=== PATIENT | male | born 1960 | race Caucasian/White ===

== ENCOUNTER 2024-01-24 20:35 | Inpatient (IN) | payer MEDICARE, MEDICAID ==
[~2024-01-24] VITALS: Ht 182.9 cm; Wt 123.1 kg
[~2024-01-24 20:35] MED LIST: AMLO10TA55 PO; BENZ-247 PO; GABA-1181 PO; HYDR10TA31 PO; HYDR50CA6 PO; QUET200T PO; RISP2TAB45 PO; VALS40TA11 PO
[2024-01-26 11:05] VITALS: BP 132/69; PULSE 86; RESP 18; TEMP 98.2
[2024-01-26] MEDS: SODIUM CHLORIDE 1 GM TABLET PO SCH (16:46)
[2024-01-26] MEDS ORDERED: MAGNESIUM HYDROXIDE SUSPENSION 30 ML UDCUP PO PRN (18:30)
[2024-01-26] MEDS ORDERED: PETROLATUM,WHITE 28 GM JELLY TP PRN (18:30)
[2024-01-26] MEDS ORDERED: ACETAMINOPHEN 325 MG TABLET PO PRN (18:30)
[2024-01-26] MEDS ORDERED: LOPERAMIDE HCL 2 MG CAPSULE PO PRN (18:30)
[2024-01-26] MEDS ORDERED: CloNIDine HCL 0.1 MG TABLET PO PRN (18:30)
[2024-01-26] MEDS ORDERED: ONDANSETRON HCL 4 MG TABLET PO PRN (18:30)
[2024-01-26] MEDS ORDERED: GuaiFENesin/D-METHORPHAN [SUGAR-FREE] 200-20MG/10 ML SYRUP UDCUP PO PRN (18:30)
[2024-01-26] MEDS ORDERED: ALBUTEROL SULFATE HFA 90 MCG/PUFF 8 GM INHALER IH PRN (18:30)
[2024-01-26] MEDS ORDERED: DOCUSATE SODIUM 100 MG CAPSULE PO PRN (18:30)
[2024-01-26 20:44] VITALS: PULSE 74; RESP 18; TEMP 97.4
[2024-01-26] MEDS: RisperiDONE 2 MG TABLET PO SCH (21:45)
[2024-01-26] MEDS: BENZTROPINE MESYLATE 1 MG TABLET PO SCH (21:45)
[2024-01-26] MEDS: ZOLPIDEM TARTRATE 10 MG TABLET PO PRN (21:57)
[2024-01-26] MEDS: LORazepam 2 MG TABLET PO PRN (21:57)
[2024-01-27] MEDS: CHLORHEXIDINE GLUCONATE 2% TOWELETTE [2'S/6'S] TP SCH (06:39)
[2024-01-27] MEDS: OLOPATADINE HCL 0.1% 5 ML OPHTHALMIC SOLUTION OU SCH (09:00)
[2024-01-27] MEDS: NICOTINE 21 MG/24 HOUR PATCH TD SCH (09:00)
[2024-01-27] MEDS: VALSARTAN 40 MG TABLET PO SCH (09:00)
[2024-01-27] MEDS: AmLODIPine BESYLATE 10 MG TABLET PO SCH (09:00)
[2024-01-27 14:31] VITALS: RESP 18
[2024-01-27 20:54] VITALS: RESP 18
[2024-01-27] MEDS: HALOPERIDOL 5 MG TABLET PO PRN (21:46)
[2024-01-28 11:21] VITALS: RESP 18; TEMP 98
[2024-01-28 21:03] VITALS: RESP 18; TEMP 97.4
[2024-01-29 10:42] VITALS: RESP 18
[2024-01-29 21:09] VITALS: RESP 18
[2024-01-30 08:39] VITALS: PULSE 88; RESP 18; TEMP 97.6
[2024-01-30 20:16] VITALS: BP 142/97; PULSE 78; RESP 18; TEMP 97.4
[2024-01-31 12:40] VITALS: RESP 18
[2024-01-31 22:13] VITALS: RESP 18
[2024-02-01 08:35] VITALS: RESP 17; TEMP 98
[2024-02-01] MEDS ORDERED: ChlorproMAZINE HCL 50 MG/2 ML AMP IM PRN (11:30)
[2024-02-01] MEDS: RisperiDONE 2 MG TABLET PO ONE (11:39)
[2024-02-01 20:49] VITALS: RESP 18
[2024-02-02 08:08] VITALS: PULSE 73; RESP 18; TEMP 97.6
[2024-02-02 08:52] VITALS: BP 141/65; PULSE 75; RESP 18
[2024-02-02 20:41] VITALS: RESP 17
[2024-02-03 09:00] VITALS: RESP 18; TEMP 98
[2024-02-03 20:25] VITALS: RESP 18
[2024-02-04 07:37] LABS: BASOPHILS % (AUTO) 0.6 % (0.0-2.0); EOSINOPHILS % (AUTO) 0.7 % (1.0-6.0); HEMATOCRIT 46.5 % (41-53); HEMOGLOBIN 15.8 g/dL (13.5-17.5); LYMPHOCYTES # (AUTO) 2.2 K/uL (1.0-4.8); LYMPHOCYTES % (AUTO) 18.3 % (22.0-44.0); MEAN CORPUSCULAR HGB CONC 33.9 G/dL (31.0-37.0); MEAN CORPUSCULAR VOLUME 95 fL (80-100); MONOCYTES # (AUTO) 1.1 K/uL (0.1-1.0); MONOCYTES % (AUTO) 9.1 % (2.0-9.0); NEUTROPHILS # (AUTO) 8.7 K/uL (1.8-7.7); NEUTROPHILS % (AUTO) 71.3 % (40.0-70.0); PLATELET COUNT (AUTO) 253 K/uL (150-450); RED BLOOD CELL COUNT(AUTO) 4.92 MIL/uL (4.50-5.90); RED CELL DISTRIBUTION WIDTH 13.8 % (11.5-14.5); WHITE BLOOD COUNT (AUTO) 12.2 K/uL (4.5-11.0)
[2024-02-04 07:48] LABS: ALANINE AMINOTRANSFERASE 39 U/L (12-78); ALBUMIN 2.9 g/dL (3.4-5.0); ALKALINE PHOSPHATASE 71 U/L (46-116); ANION GAP 7 mmol/L (8-16); ASPARTATE AMINOTRANSFERASE 20 U/L (15-37); BILIRUBIN,TOTAL 0.5 mg/dL (0.1-1.0); CALCIUM, TOTAL 8.7 mg/dL (8.8-10.5); CARBON DIOXIDE 28 mmol/L (22-29); CHLORIDE 100 mmol/L (98-107); CREATININE 0.71 mg/dL (0.60-1.30); GLOMERULAR FILTR. RATE CALC > 60 mL/min (>60); GLUCOSE,RANDOM 140 mg/dL (70-110); POTASSIUM 4.4 mmol/L (3.5-5.1); SODIUM SERUM 135 mmol/L (136-145); TOTAL PROTEIN, SERUM 6.9 g/dL (6.4-8.2); UREA NITROGEN, BLOOD 11 mg/dL (7-18)
[2024-02-04 08:54] VITALS: BP 127/71; PULSE 93; RESP 18; TEMP 97.8
[2024-02-04 23:21] VITALS: BP 118/82; PULSE 79; RESP 18; TEMP 97.2
[2024-02-05 08:58] VITALS: BP 127/88; PULSE 81; RESP 17; TEMP 97.8
[2024-02-05 20:46] VITALS: BP 140/62; PULSE 83; RESP 18; TEMP 97.8
[2024-02-06 10:22] VITALS: BP 144/69; PULSE 82; RESP 18; TEMP 97.1
[2024-02-06 21:08] VITALS: BP 102/56; PULSE 87; RESP 18; TEMP 98.5
[2024-02-07 08:17] VITALS: BP 133/72; PULSE 97; RESP 18; TEMP 97.1
[2024-02-07 20:19] VITALS: BP 161/81; PULSE 77; RESP 18; TEMP 97.9
[2024-02-08 08:37] VITALS: BP 137/77; PULSE 85; RESP 18; TEMP 97.8
[2024-02-08 20:37] VITALS: BP 159/85; PULSE 80; RESP 18; TEMP 97.8
[2024-02-09 01:43] LABS: APPEARANCE,URINE CLEAR (CLEAR); BILIRUBIN,URINE NEGATIVE (NEGATIVE); COLOR,URINE COLORLESS (YELLOW); GLUCOSE, URINE (UA) NEGATIVE (NEGATIVE); KETONES,URINE NEGATIVE (NEGATIVE); LEUKOCYTE ESTERASE ,URINE MODERATE (NEGATIVE); NITRATE,URINE NEGATIVE (NEGATIVE); OCCULT BLOOD,URINE TRACE (NEGATIVE); PROTEIN,URINE NEGATIVE (NEGATIVE); SPECIFIC GRAVITIY, URINE 1.009 (1.003-1.030); UROBILINOGEN,URINE <=1.0 mg/dL (<=1.0)
[2024-02-09 01:52] LABS: BACTERIA,URINE Many /HPF (None Seen); RBC,URINE 0-2 /HPF (0-2); SQUAMOUS EPITHELIAL CELL,UR None Seen /LPF (None Seen)
[2024-02-09 09:22] VITALS: BP 143/70; PULSE 81; RESP 18; TEMP 98
[2024-02-09 12:36] VITALS: BP 138/69; PULSE 79; RESP 18; TEMP 98
[2024-02-09] MEDS: IBUPROFEN 400 MG TABLET PO PRN (12:36)
[2024-02-09 13:36] VITALS: BP 139/76; PULSE 81; RESP 18; TEMP 98
[2024-02-09 20:49] VITALS: BP 147/68; PULSE 73; RESP 18; TEMP 98.5
[2024-02-10 09:41] VITALS: BP 148/71; PULSE 75; RESP 18; TEMP 97
[2024-02-10 20:50] VITALS: BP 159/84; PULSE 75; RESP 18; TEMP 98.5
[2024-02-11 07:49] LABS: BASOPHILS % (AUTO) 0.7 % (0.0-2.0); HEMATOCRIT 46.8 % (41-53); LYMPHOCYTES # (AUTO) 2.1 K/uL (1.0-4.8); LYMPHOCYTES % (AUTO) 20.8 % (22.0-44.0); MEAN CORPUSCULAR HEMOGLOBIN 31.8 pg (26.0-34.0); MEAN CORPUSCULAR HGB CONC 34.1 G/dL (31.0-37.0); MEAN CORPUSCULAR VOLUME 93 fL (80-100); MONOCYTES # (AUTO) 0.9 K/uL (0.1-1.0); NEUTROPHILS # (AUTO) 6.8 K/uL (1.8-7.7); NEUTROPHILS % (AUTO) 68.5 % (40.0-70.0); PLATELET COUNT (AUTO) 266 K/uL (150-450); RED BLOOD CELL COUNT(AUTO) 5.02 MIL/uL (4.50-5.90); RED CELL DISTRIBUTION WIDTH 13.3 % (11.5-14.5)
[2024-02-11 08:27] VITALS: BP 139/74; PULSE 93; RESP 18; TEMP 97.6
[2024-02-11 20:34] VITALS: BP 138/69; PULSE 75; RESP 18; TEMP 97.1
[2024-02-12 08:14] LABS: ALANINE AMINOTRANSFERASE 34 U/L (12-78); ALBUMIN 2.7 g/dL (3.4-5.0); ALKALINE PHOSPHATASE 74 U/L (46-116); ANION GAP 6 mmol/L (8-16); ASPARTATE AMINOTRANSFERASE 15 U/L (15-37); BILIRUBIN,TOTAL 0.4 mg/dL (0.1-1.0); CALCIUM, TOTAL 8.6 mg/dL (8.8-10.5); CARBON DIOXIDE 30 mmol/L (22-29); CHLORIDE 99 mmol/L (98-107); CREATININE 0.67 mg/dL (0.60-1.30); GLOMERULAR FILTR. RATE CALC > 60 mL/min (>60); GLUCOSE,RANDOM 205 mg/dL (70-110); POTASSIUM 4.4 mmol/L (3.5-5.1); SODIUM SERUM 135 mmol/L (136-145); TOTAL PROTEIN, SERUM 6.7 g/dL (6.4-8.2); UREA NITROGEN, BLOOD 10 mg/dL (7-18)
[2024-02-12] MEDS: CEPHALEXIN MONOHYDRATE 250 MG CAPSULE PO SCH (09:00)
[2024-02-12] MEDS: LACTULOSE 20 GM/30 ML SOLUTION UDCUP PO SCH (09:05)
[2024-02-12 09:20] VITALS: BP 141/73; PULSE 79; RESP 18; TEMP 97
[2024-02-12 21:24] VITALS: BP 157/75; PULSE 71; RESP 18; TEMP 97.9
[2024-02-13] MEDS: LEVOFLOXACIN 500 MG TABLET PO SCH (09:09)
[2024-02-13 09:54] VITALS: PULSE 83; RESP 18; TEMP 97
[2024-02-13 10:23] VITALS: BP 120/64; PULSE 81
[2024-02-13 21:49] VITALS: BP 154/89; PULSE 78; RESP 18; TEMP 97.7
[2024-02-14 08:20] VITALS: BP 132/76; PULSE 94; RESP 18; TEMP 97.5
[2024-02-14 21:44] VITALS: BP 159/75; PULSE 76; RESP 18; TEMP 96.5
[2024-02-15 09:04] VITALS: BP 136/64; PULSE 68; RESP 18; TEMP 97.6
[2024-02-15 20:15] VITALS: BP 138/78; PULSE 78; RESP 18; TEMP 98.1
[2024-02-16 09:42] VITALS: BP 146/83; PULSE 99; RESP 18
[2024-02-16] MEDS ORDERED: RisperiDONE ER SUSPENSION 125 MG/0.35 ML PRE-FILLED SYRINGE SQ SCH (13:00)
[2024-02-16 21:38] VITALS: RESP 18
[2024-02-17 08:26] VITALS: BP 141/70; PULSE 82; RESP 18; TEMP 98
[2024-02-17 21:03] VITALS: BP 152/89; PULSE 90; RESP 18; TEMP 98
[2024-02-18 08:49] VITALS: BP 132/69; PULSE 90; RESP 18; TEMP 97.6
[2024-02-18 21:11] VITALS: BP 160/74; PULSE 82; RESP 18; TEMP 98
[2024-02-19 10:44] VITALS: BP 118/70; PULSE 78; RESP 16; TEMP 97.8
[2024-02-19 21:03] VITALS: BP 155/68; PULSE 69; RESP 18; TEMP 98.9
[2024-02-20 09:17] VITALS: BP 124/74; PULSE 86; RESP 17; TEMP 97.9
[2024-02-20 20:51] VITALS: BP 119/70; PULSE 75; RESP 18; TEMP 97.7
[2024-02-21 10:25] VITALS: BP 122/68; PULSE 81; RESP 18; TEMP 96.8
[2024-02-21 20:26] VITALS: BP 129/75; PULSE 73; RESP 18; TEMP 98.1
[2024-02-22 09:04] VITALS: BP 126/66; PULSE 83; RESP 18; TEMP 97.6
[2024-02-22] MEDS: DIVALPROEX SODIUM 500 MG DR TABLET PO SCH (11:46)
[2024-02-22 21:06] VITALS: BP 121/64; PULSE 75; RESP 18; TEMP 97.4
[2024-02-23 10:06] VITALS: BP 97/56; PULSE 77; RESP 19; TEMP 97.8
[2024-02-23 22:47] VITALS: BP 134/72; PULSE 86; RESP 18; TEMP 97.1
[2024-02-24 08:01] LABS: ALANINE AMINOTRANSFERASE 27 U/L (12-78); ALBUMIN 2.6 g/dL (3.4-5.0); ALKALINE PHOSPHATASE 73 U/L (46-116); ASPARTATE AMINOTRANSFERASE 13 U/L (15-37); BILIRUBIN,TOTAL 0.3 mg/dL (0.1-1.0); CALCIUM, TOTAL 8.5 mg/dL (8.8-10.5); CARBON DIOXIDE 29 mmol/L (22-29); CREATININE 0.62 mg/dL (0.60-1.30); GLOMERULAR FILTR. RATE CALC > 60 mL/min (>60); GLUCOSE,RANDOM 125 mg/dL (70-110); TOTAL PROTEIN, SERUM 6.7 g/dL (6.4-8.2); UREA NITROGEN, BLOOD 10 mg/dL (7-18)
[2024-02-24 08:29] LABS: ANION GAP 6 mmol/L (8-16); CHLORIDE 102 mmol/L (98-107); POTASSIUM 4.4 mmol/L (3.5-5.1); SODIUM SERUM 137 mmol/L (136-145)
[2024-02-24 09:25] VITALS: BP 107/74; PULSE 70; RESP 18; TEMP 97.5
[2024-02-24 20:13] VITALS: BP 123/57; PULSE 72; RESP 18; TEMP 97.5
[2024-02-25 10:01] VITALS: BP 114/55; PULSE 73; RESP 19; TEMP 97.6
[2024-02-25 12:40] VITALS: BP 148/65
[2024-02-25] MEDS: RisperiDONE 2 MG TABLET PO SCH (20:21)
[2024-02-25 21:15] VITALS: BP 146/76; PULSE 84; RESP 19; TEMP 97.6
[2024-02-26 09:28] VITALS: BP 133/61; PULSE 67; RESP 18; TEMP 97.8
[2024-02-26 20:48] VITALS: BP 154/96; PULSE 76; RESP 18; TEMP 96.3
[2024-02-27 09:26] VITALS: BP 125/75; PULSE 90; RESP 18; TEMP 97.8
[2024-02-27 20:07] VITALS: BP 131/77; PULSE 94; RESP 18; TEMP 97.6
[2024-02-28 08:58] VITALS: BP 140/82; PULSE 93; RESP 18; TEMP 97
[2024-02-28 20:18] VITALS: BP 139/81; PULSE 94; RESP 18; TEMP 97.4
[2024-02-29 08:22] VITALS: BP 126/64; PULSE 91; RESP 18; TEMP 98
[2024-02-29 20:45] VITALS: BP 139/71; PULSE 81; RESP 17; TEMP 97.6
[2024-03-01 08:26] VITALS: BP 125/65; PULSE 96; RESP 18; TEMP 97.9
[2024-03-01] MEDS: MAG HYDROX/ALUMINUM HYD/SIMETH ES 30 ML SUSPENSION UDCUP PO PRN (08:55)
[2024-03-01 20:30] VITALS: BP 148/94; PULSE 17; PULSE 89; RESP 17; TEMP 97.2
[2024-03-02 08:37] LABS: ANION GAP 5 mmol/L (8-16); CALCIUM, TOTAL 8.8 mg/dL (8.8-10.5); CARBON DIOXIDE 31 mmol/L (22-29); CHLORIDE 98 mmol/L (98-107); CREATININE 0.81 mg/dL (0.60-1.30); GLOMERULAR FILTR. RATE CALC > 60 mL/min (>60); GLUCOSE,RANDOM 191 mg/dL (70-110); POTASSIUM 4.5 mmol/L (3.5-5.1); SODIUM SERUM 134 mmol/L (136-145); UREA NITROGEN, BLOOD 12 mg/dL (7-18)
[2024-03-02 09:22] VITALS: BP 131/78; PULSE 17; RESP 17; TEMP 97.9
[2024-03-02 09:29] VITALS: BP 131/78; PULSE 85; RESP 17; TEMP 97.9
[2024-03-02 20:34] VITALS: BP 143/67; PULSE 80; RESP 18; TEMP 97.2
[2024-03-03 09:36] VITALS: BP 116/75; PULSE 86; RESP 18; TEMP 98
[2024-03-03 20:07] VITALS: BP 120/67; PULSE 80; RESP 18; TEMP 97.5
[2024-03-04 08:07] VITALS: BP 131/83; PULSE 82; RESP 17; TEMP 97.6
[2024-03-04 20:58] VITALS: BP 132/81; PULSE 94; RESP 18; TEMP 98.1
[2024-03-05 08:00] VITALS: BP 124/66; PULSE 89; RESP 18; TEMP 97.7
[2024-03-05 20:46] VITALS: BP 133/71; PULSE 83; RESP 18; TEMP 98
[2024-03-06 08:53] VITALS: BP 133/73; PULSE 96; RESP 17; TEMP 96.8
[2024-03-06 21:35] VITALS: BP 147/94; PULSE 80; RESP 18; TEMP 97.5
[2024-03-07 10:17] VITALS: BP 131/97; PULSE 74; RESP 18; TEMP 97.8
[2024-03-07 20:08] VITALS: BP 128/82; PULSE 82; RESP 18; TEMP 98
[2024-03-08 08:57] LABS: ANION GAP 3 mmol/L (8-16); CALCIUM, TOTAL 8.6 mg/dL (8.8-10.5); CARBON DIOXIDE 34 mmol/L (22-29); CHLORIDE 102 mmol/L (98-107); CREATININE 0.65 mg/dL (0.60-1.30); GLOMERULAR FILTR. RATE CALC > 60 mL/min (>60); GLUCOSE,RANDOM 125 mg/dL (70-110); POTASSIUM 4.2 mmol/L (3.5-5.1); SODIUM SERUM 139 mmol/L (136-145); UREA NITROGEN, BLOOD 10 mg/dL (7-18)
[2024-03-08 14:23] VITALS: BP 141/88; PULSE 79; RESP 18; TEMP 97.8
[2024-03-08 21:03] VITALS: BP 152/69; PULSE 69; RESP 19; TEMP 97
[2024-03-09 08:47] VITALS: BP 158/74; PULSE 80; RESP 18
[2024-03-09] MEDS ORDERED: DIVA-112 PO ×2 (13:21→20:39)
[2024-03-09] MEDS ORDERED: AMLO-258 PO (20:39)
[2024-03-09] MEDS ORDERED: VALS40TA4 PO (20:39)
[2024-03-09] MEDS ORDERED: LACT10SO10 PO (20:39)
[2024-03-09] MEDS ORDERED: BENZ-247 PO (20:39)
[2024-03-09] MEDS ORDERED: RISP3TAB77 PO (20:39)
== END 2024-03-09 16:00 | disposition home or self-care (01) | DRG 885 ==
LOC: 3EX 01-26 11:00 → UNDODISIN 02-19 10:15
PROVIDERS: ADMIT Psychiatry & Neurology Psychiatry; ATTEND Psychiatry & Neurology Psychiatry
PROC: GZHZZZZ Group Psychotherapy (ICD-10-PCS; principal; 2024-01-26)
PROC: GZ51ZZZ Individual Psychotherapy, Behavioral (ICD-10-PCS; 2024-01-26)
DX: F20.0 Paranoid schizophrenia (principal); E87.1 Hypo-osmolality and hyponatremia; J44.9 Chronic obstructive pulmonary disease, unspecified; I10 Essential (primary) hypertension; R73.03 Prediabetes; Z79.899 Other long term (current) drug therapy
CPT/HCPCS: 70450; 80048; 80053; 80164; 81001; 82140; 83036; 84443; 85025; 87081; 87086; 87186; G0378; J3535; Q9967

== ENCOUNTER 2024-06-07 15:38 | Inpatient (IN) | payer MEDICARE, MEDICAID ==
[~2024-06-07] VITALS: Ht 182.9 cm; Wt 115.8 kg
[~2024-06-07 15:38] MED LIST changes: +ALBU18HF12 IH; +ATOR20TA65 PO; +BUME1TAB6 PO; +DIVA-112 PO; -GABA-1181 PO; -HYDR10TA31 PO; -HYDR50CA6 PO; +NITR0.4T50 SL; -QUET200T PO; -RISP2TAB45 PO; +RISP3TAB77 PO; +SENN-297 PO
[2024-06-07] MEDS ORDERED: MAGNESIUM HYDROXIDE SUSPENSION 30 ML UDCUP PO PRN (18:15)
[2024-06-07] MEDS ORDERED: LOPERAMIDE HCL 2 MG CAPSULE PO PRN ×2 (18:15→21:15)
[2024-06-07] MEDS ORDERED: LORazepam 2 MG TABLET PO PRN (18:15)
[2024-06-07] MEDS ORDERED: HALOPERIDOL 5 MG TABLET PO PRN (18:15)
[2024-06-07 18:52] VITALS: BP 145/58; PULSE 73; RESP 17; TEMP 97.6; O2SAT 97
[2024-06-07] MEDS ORDERED: PETROLATUM,WHITE 28 GM JELLY TP PRN (21:15)
[2024-06-07] MEDS ORDERED: IBUPROFEN 400 MG TABLET PO PRN (21:15)
[2024-06-07] MEDS ORDERED: CloNIDine HCL 0.1 MG TABLET PO PRN (21:15)
[2024-06-07] MEDS ORDERED: ALBUTEROL SULFATE HFA 90 MCG/PUFF 8 GM INHALER IH PRN (21:15)
[2024-06-07] MEDS ORDERED: NICOTINE 14 MG/24 HOUR PATCH TD PRN (21:15)
[2024-06-07] MEDS ORDERED: GuaiFENesin/D-METHORPHAN [SUGAR-FREE] 200-20MG/10 ML SYRUP UDCUP PO PRN (21:15)
[2024-06-07] MEDS ORDERED: ONDANSETRON 4 MG TABLET PO PRN (21:15)
[2024-06-07] MEDS ORDERED: DOCUSATE SODIUM 100 MG CAPSULE PO PRN (21:15)
[2024-06-07] MEDS ORDERED: DEXTROSE 50%-WATER 25 GM/50 ML SYRINGE IVP PRN (21:15)
[2024-06-07 21:16] VITALS: BP 114/55; PULSE 67; RESP 19; TEMP 97.5; O2SAT 96
[2024-06-07] MEDS: RisperiDONE 3 MG TABLET PO SCH (21:19)
[2024-06-07] MEDS: ACETAMINOPHEN 325 MG TABLET PO PRN (21:19)
[2024-06-07] MEDS: BENZTROPINE MESYLATE 1 MG TABLET PO SCH (21:19)
[2024-06-07 21:40] LABS: GLUCOMETER DEV NAME(LOC) 3E.I 2; GLUCOSE,POINT OF CARE 161 MG/DL (70-110)
[2024-06-07 22:25] VITALS: BP 132/70; PULSE 76; RESP 18; TEMP 97.1; O2SAT 96
[2024-06-07 23:30] VITALS: BP 144/72; PULSE 72; RESP 18; TEMP 97.3; O2SAT 97
[2024-06-07] MEDS: HydrALAZINE HCL 25 MG TABLET PO SCH (23:32)
[2024-06-07] MEDS: PEG 400/HYPROMELLOSE/GLYCERIN 15 ML OPHTHALMIC SOLUTION OU PRN (23:32)
[2024-06-07] MEDS: MAG HYDROX/ALUMINUM HYD/SIMETH ES 30 ML SUSPENSION UDCUP PO PRN (23:34)
[2024-06-07] MEDS: INSULIN LISPRO 100 UNITS/ML SQ PRN (23:35)
[2024-06-08] MEDS ORDERED: INFLUENZA VIRUS VACCINE TVS (6MO+) 2024-25/PF 45 MCG/0.5 ML SYRINGE IM. ONE (02:15)
[2024-06-08] MEDS ORDERED: PNEUMOCOCCAL VACCINE POLYVALENT 0.5 ML SYRINGE [PPSV23] IM. ONE (03:15)
[2024-06-08 06:01] LABS: GLUCOMETER DEV NAME(LOC) 3E.I 2; GLUCOSE,POINT OF CARE 94 MG/DL (70-110)
[2024-06-08] MEDS: ATORVASTATIN CALCIUM 20 MG TABLET PO SCH (08:04)
[2024-06-08] MEDS: PredniSONE 20 MG TABLET PO SCH (08:04)
[2024-06-08 11:27] VITALS: BP 132/62; PULSE 78; RESP 18; TEMP 98.2; O2SAT 97
[2024-06-08 12:46] LABS: GLUCOMETER DEV NAME(LOC) 3EX.2; GLUCOSE,POINT OF CARE 223 MG/DL (70-110)
[2024-06-08 12:54] VITALS: BP 135/66; PULSE 88; RESP 17; TEMP 98.3; O2SAT 96
[2024-06-08 17:10] LABS: GLUCOMETER DEV NAME(LOC) 3EX.2; GLUCOSE,POINT OF CARE 207 MG/DL (70-110)
[2024-06-08 20:35] LABS: GLUCOMETER DEV NAME(LOC) 3E.I 2; GLUCOSE,POINT OF CARE 115 MG/DL (70-110)
[2024-06-08 20:40] VITALS: BP 148/94; PULSE 69; RESP 18; TEMP 98.2; O2SAT 97
[2024-06-08] MEDS: MONTELUKAST SODIUM 10 MG TABLET PO SCH (20:42)
[2024-06-08] MEDS: ZOLPIDEM TARTRATE 10 MG TABLET PO PRN (22:52)
[2024-06-08 23:23] VITALS: BP 158/63; PULSE 64; RESP 17; TEMP 98.1; O2SAT 94
[2024-06-09 06:01] LABS: GLUCOMETER DEV NAME(LOC) 3E.I 2; GLUCOSE,POINT OF CARE 106 MG/DL (70-110)
[2024-06-09 09:45] VITALS: BP 139/56; PULSE 73; RESP 19; TEMP 98.2; O2SAT 95
[2024-06-09 11:30] LABS: GLUCOMETER DEV NAME(LOC) 3E.I 2; GLUCOSE,POINT OF CARE 138 MG/DL (70-110)
[2024-06-09 13:10] VITALS: BP 134/84; PULSE 78; RESP 17; TEMP 98.3; O2SAT 98
[2024-06-09 17:21] LABS: GLUCOMETER DEV NAME(LOC) 3E.I 2; GLUCOSE,POINT OF CARE 198 MG/DL (70-110)
[2024-06-09 20:11] LABS: GLUCOMETER DEV NAME(LOC) 3E.I 2; GLUCOSE,POINT OF CARE 125 MG/DL (70-110)
[2024-06-09 21:26] VITALS: BP 160/81; PULSE 60; RESP 18; TEMP 98.2; O2SAT 99
[2024-06-10 06:25] LABS: GLUCOMETER DEV NAME(LOC) 3E.I 2; GLUCOSE,POINT OF CARE 100 MG/DL (70-110)
[2024-06-10 08:18] VITALS: BP 147/68; PULSE 71; RESP 20; TEMP 97.9; O2SAT 95
[2024-06-10] MEDS: FLUTICASONE/VILANTEROL 200-25 MCG/INH INHALER [14] IH SCH (09:00)
[2024-06-10 11:24] VITALS: BP 138/84; PULSE 75; RESP 18; TEMP 98.2; O2SAT 96
[2024-06-10 12:00] LABS: GLUCOMETER DEV NAME(LOC) 3E.I 2; GLUCOSE,POINT OF CARE 246 MG/DL (70-110)
[2024-06-10 16:06] LABS: APPEARANCE,URINE CLEAR (CLEAR); BILIRUBIN,URINE NEGATIVE (NEGATIVE); COLOR,URINE COLORLESS (YELLOW); GLUCOSE, URINE (UA) NEGATIVE (NEGATIVE); KETONES,URINE NEGATIVE (NEGATIVE); LEUKOCYTE ESTERASE ,URINE NEGATIVE (NEGATIVE); NITRATE,URINE NEGATIVE (NEGATIVE); OCCULT BLOOD,URINE NEGATIVE (NEGATIVE); PH,URINE 7.5 (5.0-8.0); PH,URINE DRUG SCREEN 7.5 (5.0-8.0); PROTEIN,URINE NEGATIVE (NEGATIVE); SPECIFIC GRAVITIY, URINE 1.004 (1.003-1.030); UROBILINOGEN,URINE <=1.0 mg/dL (<=1.0)
[2024-06-10 16:14] LABS: ALCOHOL, URINE DRUG SCREEN NEGATIVE (NEGATIVE); AMPHET/METH SCREEN,URINE NEGATIVE (NEGATIVE); BARBITURATE SCREEN, URINE NEGATIVE (NEGATIVE); BENZODIAZEPINES SCREEN,URINE NEGATIVE (NEGATIVE); CANNABINOID SCREEN,URINE NEGATIVE (NEGATIVE); COCAINE SCREEN,URINE NEGATIVE (NEGATIVE); METHADONE SCREEN, URINE NEGATIVE (NEGATIVE); OPIATE SCREEN,URINE NEGATIVE (NEGATIVE); PHENCYCLIDINE SCREEN,URINE NEGATIVE (NEGATIVE)
[2024-06-10 16:21] LABS: BACTERIA,URINE Rare /HPF (None Seen); RBC,URINE 0-2 /HPF (0-2); SQUAMOUS EPITHELIAL CELL,UR Rare /LPF (None Seen); WBC,URINE 0-2 /HPF (0-5)
[2024-06-10 17:46] LABS: GLUCOMETER DEV NAME(LOC) 3E.I 2; GLUCOSE,POINT OF CARE 158 MG/DL (70-110)
[2024-06-10 18:37] VITALS: BP 141/87; PULSE 74; RESP 19; TEMP 98; O2SAT 97
[2024-06-10 20:27] VITALS: BP 159/75; PULSE 67; RESP 19; TEMP 98; O2SAT 98
[2024-06-10 20:51] LABS: GLUCOMETER DEV NAME(LOC) 3E.I 2; GLUCOSE,POINT OF CARE 162 MG/DL (70-110)
[2024-06-11] VITALS (7 sets, daily range): BP systolic 120–182; BP diastolic 67–74; PULSE 65–80; RESP 17–19; TEMP 97.4–98.2; O2SAT 0–98
[2024-06-11 05:45] LABS: GLUCOMETER DEV NAME(LOC) 3E.I 2; GLUCOSE,POINT OF CARE 104 MG/DL (70-110)
[2024-06-11 19:06] LABS: GLUCOMETER DEV NAME(LOC) 3E.I 2; GLUCOSE,POINT OF CARE 226 MG/DL (70-110)
[2024-06-11 20:06] LABS: GLUCOMETER DEV NAME(LOC) 3E.I 2; GLUCOSE,POINT OF CARE 141 MG/DL (70-110)
[2024-06-12 05:40] LABS: GLUCOMETER DEV NAME(LOC) 3E.I 2; GLUCOSE,POINT OF CARE 99 MG/DL (70-110)
[2024-06-12 08:25] VITALS: BP 147/66; PULSE 76; RESP 18; TEMP 97.9; O2SAT 98
[2024-06-12 10:37] VITALS: BP 139/58; PULSE 73; RESP 18; TEMP 97.6; O2SAT 97
[2024-06-12 11:36] LABS: GLUCOMETER DEV NAME(LOC) 3EX.2; GLUCOSE,POINT OF CARE 194 MG/DL (70-110)
[2024-06-12 15:25] VITALS: BP_SYST 146; BP_SYST 152; BP_DIAS 74; BP_DIAS 76; PULSE 70; PULSE 76; RESP 17; RESP 18; TEMP 97.8; TEMP 98; O2SAT 95; O2SAT 97
[2024-06-12 17:31] LABS: GLUCOMETER DEV NAME(LOC) 3EX.2; GLUCOSE,POINT OF CARE 140 MG/DL (70-110)
[2024-06-12 20:50] LABS: GLUCOMETER DEV NAME(LOC) 3E.I 2; GLUCOSE,POINT OF CARE 155 MG/DL (70-110)
[2024-06-12 22:35] VITALS: BP 160/66; PULSE 72; RESP 19; TEMP 98.1; O2SAT 98
[2024-06-13 06:11] LABS: GLUCOMETER DEV NAME(LOC) 3E.I 2; GLUCOSE,POINT OF CARE 94 MG/DL (70-110)
[2024-06-13 07:17] LABS: BASOPHILS % (AUTO) 0.3 % (0.0-2.0); EOSINOPHILS % (AUTO) 0.3 % (1.0-6.0); HEMATOCRIT 43.9 % (41-53); HEMOGLOBIN 14.5 g/dL (13.5-17.5); LYMPHOCYTES # (AUTO) 2.7 K/uL (1.0-4.8); LYMPHOCYTES % (AUTO) 25.8 % (22.0-44.0); MEAN CORPUSCULAR HEMOGLOBIN 32.3 pg (26.0-34.0); MEAN CORPUSCULAR VOLUME 98 fL (80-100); MONOCYTES % (AUTO) 9.8 % (2.0-9.0); NEUTROPHILS # (AUTO) 6.8 K/uL (1.8-7.7); NEUTROPHILS % (AUTO) 63.8 % (40.0-70.0); PLATELET COUNT (AUTO) 187 K/uL (150-450); RED BLOOD CELL COUNT(AUTO) 4.48 MIL/uL (4.50-5.90); RED CELL DISTRIBUTION WIDTH 15.5 % (11.5-14.5); WHITE BLOOD COUNT (AUTO) 10.6 K/uL (4.5-11.0)
[2024-06-13 07:35] LABS: CHOL/HDL RATIO 1.6 (4.2-7.3); HEMOGLOBIN A1C 5.7 % (3.8-5.6)
[2024-06-13 07:42] LABS: ALANINE AMINOTRANSFERASE 52 U/L (12-78); ALBUMIN 2.8 g/dL (3.4-5.0); ALKALINE PHOSPHATASE 42 U/L (46-116); ANION GAP 4 mmol/L (8-16); ASPARTATE AMINOTRANSFERASE 16 U/L (15-37); BILIRUBIN,TOTAL 0.5 mg/dL (0.1-1.0); CALCIUM, TOTAL 8.2 mg/dL (8.8-10.5); CARBON DIOXIDE 32 mmol/L (22-29); CHLORIDE 99 mmol/L (98-107); GLOMERULAR FILTR. RATE CALC > 60 mL/min (>60); GLUCOSE,RANDOM 96 mg/dL (70-110); POTASSIUM 4.3 mmol/L (3.5-5.1); SODIUM SERUM 135 mmol/L (136-145); THYROID STIMULATING HORMONE 0.94 uIU/mL (0.36-3.74); TOTAL PROTEIN, SERUM 5.4 g/dL (6.4-8.2); UREA NITROGEN, BLOOD 10 mg/dL (7-18)
[2024-06-13 09:31] VITALS: BP 158/71; PULSE 75; RESP 19; TEMP 97.2; O2SAT 98
[2024-06-13 11:36] LABS: GLUCOMETER DEV NAME(LOC) 3EX.2; GLUCOSE,POINT OF CARE 177 MG/DL (70-110)
[2024-06-13 17:06] LABS: GLUCOMETER DEV NAME(LOC) 3EX.2; GLUCOSE,POINT OF CARE 180 MG/DL (70-110)
[2024-06-13] MEDS ORDERED: BENZ-247 PO (17:28)
[2024-06-13] MEDS ORDERED: MONT-35 PO (17:28)
[2024-06-13] MEDS ORDERED: RISP3TAB77 PO (17:28)
[2024-06-13] MEDS ORDERED: ATOR20TA65 PO (17:28)
[2024-06-13 20:35] VITALS: BP 154/87; PULSE 62; RESP 18; TEMP 97.6; O2SAT 98
[2024-06-13 21:16] LABS: GLUCOMETER DEV NAME(LOC) 3E.I 2; GLUCOSE,POINT OF CARE 150 MG/DL (70-110)
[2024-06-14 06:15] LABS: GLUCOMETER DEV NAME(LOC) 3E.I 2; GLUCOSE,POINT OF CARE 86 MG/DL (70-110)
[2024-06-14 08:17] VITALS: BP 145/83; PULSE 71; RESP 18; TEMP 97.2; O2SAT 100
[2024-06-14] MEDS ORDERED: FLUT1BLS IH (10:44)
[2024-06-14] MEDS ORDERED: MONT-35 PO (10:45)
[2024-06-14] MEDS ORDERED: HYDR25TA84 PO (10:45)
[2024-06-14] MEDS ORDERED: PRED-554 PO (10:46)
[2024-06-14 11:36] LABS: GLUCOMETER DEV NAME(LOC) 3EX.2; GLUCOSE,POINT OF CARE 186 MG/DL (70-110)
== END 2024-06-14 15:25 | disposition home or self-care (01) | DRG 885 ==
LOC: 3EX 20:58
PROVIDERS: ADMIT Psychiatry & Neurology Psychiatry; ATTEND Psychiatry & Neurology Psychiatry
PROC: GZHZZZZ Group Psychotherapy (ICD-10-PCS; principal; 2024-06-08)
PROC: GZ52ZZZ Individual Psychotherapy, Cognitive (ICD-10-PCS; 2024-06-12)
DX: F20.0 Paranoid schizophrenia (principal); E87.1 Hypo-osmolality and hyponatremia; J44.9 Chronic obstructive pulmonary disease, unspecified; G47.33 Obstructive sleep apnea (adult) (pediatric); I10 Essential (primary) hypertension; E78.5 Hyperlipidemia, unspecified; Z88.8 Allergy status to other drugs, medicaments and biological substances; Z79.899 Other long term (current) drug therapy
CPT/HCPCS: 80053; 80061; 80307; 81001; 82962; 83036; 84443; 85025; 87081; G0378